=== PATIENT | male | born 1975 | race African-American/Black ===

== ENCOUNTER 2024-03-05 11:11 | Emergency (ER) | payer BC, SELFPAY ==
[2024-03-05 11:16] VITALS: BP 154/84; PULSE 94; RESP 18; TEMP 37.3; O2SAT 100
[2024-03-05 11:17] VITALS: BP 154/84; PULSE 87; RESP 21; O2SAT 96
[2024-03-05 11:31] VITALS: BP 136/84; PULSE 88; RESP 18; O2SAT 96
[2024-03-05] MEDS: SODIUM CHLORIDE 0.9% IV 1,000 ML 999 ML IV CONT (11:39)
[2024-03-05 11:45] LABS: Eosinophils Absolute Auto 0.1 K/mm3 (0-0.3); Eosinophils Percent Auto 1.6 % (0-4.4); Hematocrit 43.5 % (42.0-52.0); Hemoglobin 13.9 g/dL (14.0-18.0); Immature Granulocyte Absolute 0.01 K/mm3 (0.00-0.031); Immature Granulocyte Percent A 0.3 % (0-0.5); Lymphocytes Absolute Auto 1.24 K/mm3 (0.9-3.2); Lymphocytes Percent Auto 32.3 % (18.3-44.2); Mean Corpuscular Hemoglobin 27.5 pg (26-34); Mean Corpuscular Volume 86.1 fl (80-100); Monocytes Absolute Auto 0.7 K/mm3 (0.1-0.6); Monocytes Percent Auto 16.9 % (2.6-8.5); Neutrophils Absolute Auto 1.8 K/mm3 (1.3-6.7); Neutrophils Percent Auto 47.9 % (45.5-73.1); Platelet Count Result 265 k/mm3 (150-375); Red Blood Count 5.05 M/mm3 (4.6-6.20); Red Cell Distribution Width 13.4 % (11.5-14.5); White Blood Count 3.8 K/mm3 (4.5-10.0)
[2024-03-05 11:54] LABS: Alanine Aminotransferase 50 U/L (6-50); Albumin Level 4.8 g/dL (3.5-5.1); Alkaline Phosphatase 79 U/L (38-126); Anion Gap 11 mmol/L (4-12); Aspartate Amino Transferase 46 U/L (17-59); Blood Urea Nitrogen 20 mg/dL (9-20); Calcium 9.1 mg/dL (8.4-10.2); Carbon Dioxide 22 mmol/L (22-30); Chloride 103 mmol/L (98-107); Estimated CRCL calculation 102 ml/min; Estimated Glomerular Filt Rate > 60; Glucose 101 mg/dL (65-110); Lipase 71 U/L (23-300); Potassium 4.6 mmol/L (3.4-5.0); Sodium 136 mmol/L (137-145)
[2024-03-05 12:01] VITALS: BP 149/89; PULSE 83; RESP 23; O2SAT 94
--- NOTE | 2024-03-05 13:14 | ED.NAVMDI ---
HPI - Nausea/Vomiting/Diarrhea General Chief complaint: Nausea/Vomiting/Diarrhea Stated complaint: N/V Time Seen by Provider: 03/05/24 11:13 History of Present Illness HPI Narrative: Patient is a 48-year-old male who presents ER with nausea vomiting diarrhea. Ongoing over last 5 days. No vomiting or diarrhea today. He has increased fatigue. Poor appetite. Daughter with similar symptoms. No bloody stool. Related Data Allergies Allergy/AdvReac Type Severity Reaction Status Date / Time No Known Allergies Allergy Verified 03/05/24 11:19 Review of Systems Review of Systems: All systems reviewed & are unremarkable except as noted in HPI and below Constitutional: Constitutional: Denies chills, Reports fatigue and Denies fever(s) ENT: Reports system reviewed and no additional complaints, except as documented Cardiovascular: Cardiovascular: Reports no additional cardiovascular complaints Respiratory: Respiratory: Reports no additional respiratory complaints Gastrointestinal: Gastrointestinal: Denies abdominal pain, Reports diarrhea, Reports nausea and Denies vomiting PMFSH Past Medical History Medical History (Updated 03/05/24 @ 13:19 by Demetri Solis MD) Healthy adult male Surgical History Surgical History (Updated 03/05/24 @ 13:19 by Demetri Solis MD) No history of previous surgery Exam Narrative: GENERAL: Well-appearing, well-nourished, and in no acute distress. HEAD: Normocephalic, atraumatic. ENT: Mucous membranes moist. CHEST: Clear to auscultation. No respiratory distress. HEART: Regular rate and rhythm. Normal peripheral pulses. ABDOMEN: Soft, nontender, nondistended. EXTREMITIES: Normal range of motion. No edema. SKIN: Warm, dry, no rash. NEURO: Alert and oriented x3. PSYCH: Normal mood and affect. Course Course Emergency Course: patient reporting mild headache at this time. Will give Toradol. He does feel improved with fluids. Discharge home with antiemetics. Vital Signs Vital signs: Vital Signs Temperature 99.1 F 03/05/24 11:16 Pulse Rate 94 03/05/24 11:16 Respiratory Rate 18 03/05/24 11:16 Blood Pressure 154/84 H 03/05/24 11:16 Pulse Oximetry 100 03/05/24 11:16 Oxygen Delivery Room Air 03/05/24 11:16 Temperature 99.1 F 03/05/24 11:16 Pulse Rate 83 03/05/24 12:01 Respiratory Rate 23 H 03/05/24 12:01 Blood Pressure 149/89 H 03/05/24 12:01 Pulse Oximetry 94 03/05/24 12:01 Oxygen Delivery Room Air 03/05/24 11:16 MDM - Nausea/Vomiting/Diarrhea Lab Data Attestation: I reviewed the patient's lab results. 03/05/24 11:35 03/05/24 11:36 Labs: Lab Results 03/05/24 03/05/24 Range/Units 11:35 11:36 WBC 3.8 L (4.5-10.0) K/mm3 RBC 5.05 (4.6-6.20) M/mm3 Hgb 13.9 L (14.0-18.0) g/dL Hct 43.5 (42.0-52.0) % MCV 86.1 (80-100) fl MCH 27.5 (26-34) pg MCHC 32.0 (32-36) g/dl RDW 13.4 (11.5-14.5) % Plt Count 265 (150-375) k/mm3 MPV 10.0 (7.4-10.4) fl Immature Gran % (Auto) 0.3 (0-0.5) % Neut % (Auto) 47.9 (45.5-73.1) % Lymph % (Auto) 32.3 (18.3-44.2) % [place] % (Auto) 16.9 H (2.6-8.5) % Eos % (Auto) 1.6 (0-4.4) % Baso % (Auto) 1.0 (0.2-1.2) % Lymph # (Auto) 1.24 (0.9-3.2) K/mm3 [place] # (Auto) 0.7 H (0.1-0.6) K/mm3 Eos # (Auto) 0.1 (0-0.3) K/mm3 Baso # (Auto) 0.0 (0.0-0.1) K/mm3 Abs Immat Gran (auto) 0.01 (0.00-0.031) K/mm3 Absolute Neuts (auto) 1.8 (1.3-6.7) K/mm3 Absolute Nucleated RBC 0.000 (0.0-0.012) K/mm3 Nucleated RBC % 0.0 (0.0-0.2) % Sodium 136 L (137-145) mmol/L Potassium 4.6 (3.4-5.0) mmol/L Chloride 103 (98-107) mmol/L Carbon Dioxide 22 (22-30) mmol/L Anion Gap 11 (4-12) mmol/L BUN 20 (9-20) mg/dL Creatinine 0.80 (0.7-1.3) mg/dL Estim Creat Clear Calc 102 ml/min Estimated GFR > 60 (59 - ) Glucose 101 (65-110) mg/dL Calcium 9.1 (8.4-10.2) mg/dL To
[2024-03-05 13:27] VITALS: BP 147/98; PULSE 83; RESP 16; O2SAT 95
[2024-03-05] MEDS: KETOROLAC 30 MG/ML VIAL (*BKC) IV PUSH (13:27)
== END 2024-03-05 13:29 | disposition home or self-care (01) ==
PROVIDERS: Emergency Provider Emergency Medicine
DX: K52.9 Noninfective gastroenteritis and colitis, unspecified (principal)
CPT/HCPCS: 36415; 80053; 83690; 85025; 96361; 96374; 99284; J1885; J7030

== ENCOUNTER 2025-01-04 19:08 | Emergency (ER) | payer BC, SELFPAY ==
[2025-01-04] VITALS (8 sets, daily range): BP systolic 134–161; BP diastolic 88–96; PULSE 52–95; RESP 16–20; TEMP 36.7; O2SAT 95–99
--- NOTE | ~2025-01-04 | XR_ITS ---
CHEST RADIOGRAPH, PA AND LATERAL CLINICAL HISTORY: cough, self reports wheezes; coarse breath sounds . COMPARISON: None available TECHNIQUE: PA and lateral views of the chest. FINDINGS The cardiomediastinal silhouette is unremarkable. The lungs are clear. Visualized osseous structures and soft tissues are unremarkable. IMPRESSION: No focal infiltrate or effusion. Reviewed, dictated and finalized at location A.
--- NOTE | 2025-01-04 19:10 | ECG_ITS ---
Test Date: 2025-01-04 19:12:36 Measurements Intervals [place] Rate: 64 P: 56 OK: 209 QRS: 34 QRSD: 101 T: 52 QT: 359 QTc: 372 Interpretive Statements SINUS RHYTHM WITH FIRST DEGREE AV BLOCK BORDERLINE ECG No previous ECG available for comparison Electronically Signed On 01-04-2025 20:29:08 CDT by Fuentes Alba D.O.
--- OUTSIDE RECORDS SUMMARY | 2025-01-04 19:10 | XMS_ITS | Clinical Summary ---
Author Organization [facility] Address [address] [place] [address] Care Team Providers Care Elevator Installer Name Role Phone [facility], Jon Montoyaran Primary Care Pro vider Allergies No known active allergies Medications No known medications Active Problems No known active problems Surgical History Surgery Date Site/Laterality Comments SHOULDER SURGERY Medical History Medical History Date Comments Back pain Social History Tobacco Use Types Packs/Day Years Used Date Smoking Tobacco: Former Smokeless Tobacco: Former Personal Safety Answer Date Recorded Getting School Help Needed Not on file 12/13 Sex and Gender Information Value Date Recorded Sex Assigned at Not on file 

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
--- OUTSIDE RECORDS SUMMARY | 2025-01-04 19:10 | XMS_ITS | Referral Summary ---
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
--- OUTSIDE RECORDS SUMMARY | 2025-01-04 19:10 | XMS_ITS | Continuity of Care Document ---
Author Name [facility] Organization [facility] Care Team Providers Care Tool And Die Maker Name Role Phone [facility] Unavailable Unavailable Problems Combined list of problems from Department of Defense and Veterans Affairs facilities. It does not include entries that were removed or entered in error. Problem Status Onset Date Problem Type Date of Resolution Comments Source Allergic rhinitis Active Condition [facility] Chronic depression Active Condition [facility] Chronic folliculitis (SNOMED CT 050701923) Active Condition [facility] Chronic low back pain Active Condition [facility] Chronic pain Active Condition [facility] Degeneration of lumbar intervertebral disc Active Condition [facility] Erectile dysfunction (SNOMED CT 103767837) Active Condition [facility] Hyperlipidemia Active Condition 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 Depressive Disorder NOS * (ICD-9-CM 311./300.4) Inactive Condition 01/23/2024 [facility] Elevated blood-pressure reading without diagnosis of hypertension Inactive Condition 01/23/2024 [facility] Sprains and strains of knee and leg (ICD-9-CM 844.9) Inactive Condition 11/28/2022 [facility] Stye Inactive Condition 03/03/2019 [facility] Diagnosis: ICD-10-CM F43.12 Post-traumatic stress disorder, chronic Active Diagnosis [facility] Diagnosis: ICD-10-CM F43.20 Adjustment disorder, unspecified Active Diagnosis [facility] Diagnosis: ICD-10-CM M54.50 Low back pain, unspecified Active Diagnosis [facility] Diagnosis: ICD-10-CM G89.29 Other chronic pain Active Diagnosis [facility] Diagnosis: ICD-10-CM F43.23 Adjustment disorder with mixed anxiety and depressed mood Active Diagnosis [facility] Diagnosis: ICD-10-CM F43.22 Adjustment disorder with anxiety Active Diagnosis [facility] Diagnosis: ICD-10-CM R73.03 Prediabetes Active Diagnosis [facility] Medications Combined list of outpatient medications from Department of Defense and [facility] Affairs facilities.Medications provided include 1) outpatient medications from the last 15 months, and 2) patient-reported medications. Medication Details Route Status Patient Instructions Prescription Expires Prescription Number Last Dispense Date Ordering Provider Order Date Order Qty Source BENZOYL PEROXIDE 10% WASH WASH SMALL AMOUNT TO AFFECTED AREA(S) ONCE A DAY FOR ACNE TOPICA L ACTIVE 01/23/2025 [id number] 5 DENVER PALUMBO 2023 450 [facility] BENZOYL PEROXIDE 10% WASH WASH SMALL AMOUNT TO AFFECTED AREA(S) ONCE A DAY FOR ACNE TOPICA L DISCONT INUED 02/14/2024 [id number] SHANNON KINGSTON SA 2022 450 [facility] CAMPHOR/MEN THOL/METHYL SALICYLATE LARGE PATCH APPLY 1 PATCH TO SKIN SITE ONCE A DAY (EXTERNA L USE ONLY) TRANSD ERMAL ACTIVE 10/03/2025 [id number] 5 DENVER PALUMBO 2024 90 [facility] CAPSAICIN 0.025% CREAM,TOP APPLY LIGHTLY TO AFFECTED AREA(S) FOUR TIMES A DAY FOR PAIN. EXTERNAL USE ONLY. WASH HANDS AFTER APPLICAT ION. TOPICA L 02/14/2024 [id number] 4 SHANNON KINGSTON SA 2022 60 [facility] CETIRIZINE HCL 10MG TAB TAKE ONE TABLET BY MOUTH ONCE A DAY FOR ALLERGY SYMPTOMS . ORAL ACTIVE 12/24/2025 [id number] 5 DENVER PALUMBO 2024 90 [facility] CETIRIZINE HCL 10MG TAB TAKE ONE TABLET BY MOUTH ONCE A DAY FOR ALLERGY SYMPTOMS . ORAL DISCONT INUED 01/23/2025 [id number] 5 DENVER PALUMBO 2023 90 [facility] CETIRIZINE HCL 10MG TAB TAKE ONE TABLET BY MOUTH ONCE A DAY FOR ALLERGY SYMPTOMS . ORAL DISCONT INUED 02/14/2024 [id number] 4 SHANNON KINGSTON SA 2022 90 [facility] CHOLECALCIF TERRY 25MCG (1,000UNIT) TAB TAKE THREE TABLETS BY MOUTH ONCE A DAY FOR VITAMIN D DEFICIEN CY ORAL ACTIVE 01/23/2025 [id number] 5 DENVER PALUMBO 2023 300 [facility] CYCLOBENZAP RINE HCL 10MG TAB TAKE ONE TABLET BY MOUTH AT BEDTIME NEEDED MAY CAUSE DROWSINE SS. DO NOT DRINK ALCOHOL WHILE TAKING THIS MEDICATI ON. ORAL ACTIVE 10/03/2025 [id number] 5 DENVER PALUMBO 2024 90 [facility] DICLOFENAC NA 1% GEL,TOP APPLY 2 GM TO AFFECTED AREA(S) FOUR TIMES A DAY NO MORE THAN 16 GM/DAY TO ANY LOWER EXTREMIT Y JOINT. NO MORE THAN 8 GM/DAY TO ANY UPPER EXTREMIT Y JOINT. MAX 32GM/DAY OVER ALL JOINTS.( MEASURE DOSE WITH RULER INSIDE BOX) TOPICA L ACTIVE 10/03/2025 [id number] 5 DENVER PALUMBO 2024 200 [facility] IBUPROFEN 800MG TAB TAKE ONE TABLET BY MOUTH THREE TIMES A DAY NEEDED FOR PAIN OR INFLAMMA TION. TAKE WITH FOOD. ORAL ACTIVE 01/23/2025 [id number] 4 DENVER PALUMBO 2023 90 [facility] SILDENAFIL CITRATE 100MG TAB TAKE ONE TABLET BY MOUTH EVERY WEEK NEEDED FOR ERECTILE DYSFUNCT ION (TAKE 60 MINUTES PRIOR TO SEXUAL ACTIVITY ) - LIMIT 6 DOSES PER 30 DAYS ORAL ACTIVE 10/03/2025 [id number] 5 DENVER PALUMBO 2024 18 [facility] SILDENAFIL CITRATE 100MG TAB TAKE ONE TABLET BY MOUTH EVERY WEEK NEEDED FOR ERECTILE DYSFUNCT ION (TAKE 60 MINUTES PRIOR TO SEXUAL ACTIVITY ) - LIMIT 6 DOSES PER 30 DAYS ORAL DISCONT INUED (EDIT) 08/21/2025 [id number] 4 DENVER PALUMBO 2023 6 [facility] SILDENAFIL CITRATE 100MG TAB TAKE ONE TABLET BY MOUTH EVERY WEEK NEEDED FOR ERECTILE DYSFUNCT ION (TAKE 60 MINUTES PRIOR TO SEXUAL ACTIVITY ) - LIMIT 6 DOSES PER 30 DAYS ORAL DISCONT INUED 01/23/2025 [id number] 4 DENVER PALUMBO 2023 6 [facility] SILDENAFIL CITRATE 100MG TAB TAKE ONE TABLET BY MOUTH EVERY WEEK NEEDED FOR ERECTILE DYSFUNCT ION (TAKE 60 MINUTES PRIOR TO SEXUAL ACTIVITY ) - LIMIT 6 DOSES PER 30 DAYS ORAL DISCONT INUED 07/06/2024 [id number] 4 DENVER PALUMBO 2022 6 [facility] Allergies, Adverse Reactions, Alerts Combined list of allergies from Department of Defense and Veterans Affairs facilities. It does not include entries that were removed or entered in error. Substance Category Reaction Severity Reaction type Status Date Reported Comments Source NIASPAN Propensity to adverse reactions to drug (finding) [place] active 04/05/2009 [facility] Immunizations Combined list of available immunizations from the Department of Defense and Veterans Affairs facilities. Immunization Series Date Given Administered By Site Reaction Lot Number CVX Code Drug Vp Treasurer Status Comments Source TDAP 2023 RESHMA JARQUIN RIGHT DELTO ID [id number] 115 complet ed [facility] TDAP 2007 [facility] INFLUENZA, UNSPECIFIED FORMULATION 2006 88 complet ed [facility] INFLUENZA, UNSPECIFIED FORMULATION 2005 88 complet ed [facility] TDAP 2005 115 complet ed Right Deltoid [facility] Results Combined list of recent chemistry, hematology and other laboratory results from Department of Defense and Veterans Affairs, ranging from 15 months to all on record, depending upon the facility. Order Name Results Value Reference Range Date Interpretation Specimen Comments Source HGA1C HEMOGLOBIN A1C/HEMOGLO BIN.TOTAL IN BLOOD 6.2 4.0 - 6.0 01/22 H Specimen Type: BLOOD No comment entered. Ordering Provider: ROSCOE PALUMBO Report Released Date/Time: Jan 23, 2024 10:41 AM Reporting Lab: [facility] [address] [facility] [address] Performing Lab: [facility] [address] [place] [phone] [place] [address] [facility] LIPID PANEL (STL) CHOLESTEROL [MASS/VOLUM E] IN SERUM OR PLASMA 197 mg/dL 0 - 200 01/22 Specimen Type: PLASMA Comment: No hemolysis noted. Ordering Provider: ROSCOE PALUMBO Report Released Date/Time: Jan 23, 2024 10:41 AM Reporting Lab: [facility] [address] [facility] [address] Performing Lab: [facility] [address] [place] [phone] [facility] LIPID PANEL (STL) TRIGLYCERID E [MASS/VOLUM E] IN SERUM OR PLASMA 179 mg/dL 0 - 150 01/22 H Specimen Type: PLASMA Comment: No hemolysis noted. Ordering Provider: ROSCOE PALUMBO Report Released Date/Time: Jan 23, 2024 10:41 AM Reporting Lab: [facility] [address] [place] [phone] Performing Lab: [address] [phone] [place] [address] [facility] LIPID PANEL (STL) CHOLESTEROL IN LDL [MASS/VOLUM E] IN SERUM OR PLASMA BY CALCULATION 120 mg/dL 01/22 Specimen Type: PLASMA Comment: No hemolysis noted. Ordering Provider: ROSCOE PALUMBO Report Released Date/Time: Jan 23, 2024 10:41 AM Reporting Lab: [address] [address] Performing Lab: [address] [phone] [facility] LIPID PANEL (STL) CHOLESTEROL IN HDL [MASS/VOLUM E] IN SERUM OR PLASMA 41 mg/dL 40 01/22 Specimen Type: PLASMA Comment: No hemolysis noted. Ordering Provider: ROSCOE PALUMBO Report Released Date/Time: Jan 23, 2024 10:41 AM Reporting Lab: [address] [address] Performing Lab: [address] [phone] [facility] VITAMIN D, 25-HYDROXY 25-HYDROXYV ITAMIN D3 [MASS/VOLUM E] IN SERUM OR PLASMA 25.4 ng/mL 30 - 96 01/22 L Specimen Type: SERUM Comment: The listed sex of this patient may not be a typical indication for this test. Therefore, reference ranges or interpretive criteria listed may not be valid. Clinical correlation suggested. Ordering Provider: ROSCOE PALUMBO Report Released Date/Time: Jan 23, 2024 10:42 AM Reporting Lab: [address] [address] Performing Lab: [address] [phone] [place] [address] [facility] TSH W/ REFLEX FT4 (STL) THYROTROPIN [UNITS/VOLU ME] IN SERUM OR PLASMA 0.599 u[IU]/ mL 0.47 - 5 01/22 Specimen Type: PLASMA No comment entered. Ordering Provider: ROSCOE PALUMBO Report Released Date/Time: Jan 23, 2024 10:42 AM Reporting Lab: [place] [address] Performing Lab: [phone] [place] [address] [facility] PROST. SPECIFIC AG.(PB-STL ) PROSTATE SPECIFIC AG [MASS/VOLUM E] IN SERUM OR PLASMA 3.918 ng/mL 0 - 4 01/22 Specimen Type: SERUM Comment: The listed sex of this patient may not be a typical indication for this test. Therefore, reference ranges or interpretive criteria listed may not be valid. Clinical correlation suggested. Ordering Provider: ROSCOE PALUMBO Report Released Date/Time: Jan 23, 2024 10:42 AM Reporting Lab: [place] [address] Performing Lab: [address] [facility] COMPREHENS DE METABOLIC PANEL CREATININE [MASS/VOLUM E] IN SERUM OR PLASMA 0.91 mg/dL 0.7 - 1.3 01/22 Specimen Type: PLASMA Comment: No hemolysis noted. Ordering Provider: ROSCOE PALUMBO Report Released Date/Time: Jan 23, 2024 10:41 AM Reporting Lab: [place] [address] Performing Lab: [address] [facility] COMPREHENS DE METABOLIC PANEL UREA NITROGEN [MASS/VOLUM E] IN SERUM OR PLASMA 13.9 mg/dL 9.0 - 25.0 01/22 Specimen Type: PLASMA Comment: No hemolysis noted. Ordering Provider: ROSCOE PALUMBO Report Released Date/Time: Jan 23, 2024 10:41 AM Reporting Lab: [place] [address] Performing Lab: [address] [place] [address] [facility] COMPREHENS DE METABOLIC PANEL GLUCOSE [MASS/VOLUM E] IN SERUM OR PLASMA 77 mg/dL 72 - 99 01/22 Specimen Type: PLASMA Comment: No hemolysis noted. Ordering Provider: ROSCOE PALUMBO Report Released Date/Time: Jan 23, 2024 10:41 AM Reporting Lab: [address] [address] Performing Lab: [address] [address] [facility] COMPREHENS DE METABOLIC PANEL SODIUM [MOLES/VOLU ME] IN SERUM OR PLASMA 139 meq/L 136 - 145 01/22 Specimen Type: PLASMA Comment: No hemolysis noted. Ordering Provider: ROSCOE PALUMBO Report Released Date/Time: Jan 23, 2024 10:41 AM Reporting Lab: [address] [address] Performing Lab: [address] [address] [facility] COMPREHENS DE METABOLIC PANEL POTASSIUM [MOLES/VOLU ME] IN SERUM OR PLASMA 4.1 meq/L 3.5 - 5 01/22 Specimen Type: PLASMA Comment: No hemolysis noted. Ordering Provider: ROSCOE PALUMBO Report Released Date/Time: Jan 23, 2024 10:41 AM Reporting Lab: [address] [address] Performing Lab: [address] [address] [facility] COMPREHENS DE METABOLIC PANEL CHLORIDE [MOLES/VOLU ME] IN SERUM OR PLASMA 105 meq/L 98 - 107 01/22 Specimen Type: PLASMA Comment: No hemolysis noted. Ordering Provider: ROSCOE PALUMBO Report Released Date/Time: Jan 23, 2024 10:41 AM Reporting Lab: [address] [address] Performing Lab: [place] [address] [facility] [address] [facility] COMPREHENS DE METABOLIC PANEL CARBON DIOXIDE, TOTAL [MOLES/VOLU ME] IN SERUM OR PLASMA 26 meq/L 22 - 31 01/22 Specimen Type: PLASMA Comment: No hemolysis noted. Ordering Provider: ROSCOE PALUMBO Report Released Date/Time: Jan 23, 2024 10:41 AM Reporting Lab: [address] [address] Performing Lab: [address] [address] [facility] COMPREHENS DE METABOLIC PANEL CALCIUM [MASS/VOLUM E] IN SERUM OR PLASMA 9.7 mg/dL 8.4 - 10.4 01/22 Specimen Type: PLASMA Comment: No hemolysis noted. Ordering Provider: ROSCOE PALUMBO Report Released Date/Time: Jan 23, 2024 10:41 AM Reporting Lab: [address] [address] Performing Lab: [address] [address] [facility] COMPREHENS DE METABOLIC PANEL PROTEIN [MASS/VOLUM E] IN SERUM OR PLASMA 7.8 g/dL 6 - 8.6 01/22 Specimen Type: PLASMA Comment: No hemolysis noted. Ordering Provider: ROSCOE PALUMBO Report Released Date/Time: Jan 23, 2024 10:41 AM Reporting Lab: [place] [address] [facility] [address] Performing Lab: [address] [address] [facility] COMPREHENS DE METABOLIC PANEL ALBUMIN [MASS/VOLUM E] IN SERUM OR PLASMA 4.5 g/dL 3.4 - 5 01/22 Specimen Type: PLASMA Comment: No hemolysis noted. Ordering Provider: ROSCOE PALUMBO Report Released Date/Time: Jan 23, 2024 10:41 AM Reporting Lab: [address] [address] Performing Lab: [facility] [address] [facility] [address] [facility] COMPREHENS DE METABOLIC PANEL BILIRUBIN.T OTAL [MASS/VOLUM E] IN SERUM OR PLASMA 0.7 mg/dL 0.2 - 1.2 01/22 Specimen Type: PLASMA Comment: No hemolysis noted. Ordering Provider: ROSCOE PALUMBO Report Released Date/Time: Jan 23, 2024 10:41 AM Reporting Lab: [place] [address] [facility] [address] Performing Lab: [address] [phone] [place] [address] [facility] COMPREHENS DE METABOLIC PANEL ALKALINE PHOSPHATASE [ENZYMATIC ACTIVITY/VO LUME] IN SERUM OR PLASMA 75 U/L 40 - 150 01/22 Specimen Type: PLASMA Comment: No hemolysis noted. Ordering Provider: ROSCOE PALUMBO Report Released Date/Time: Jan 23, 2024 10:41 AM Reporting Lab: [place] [address] [facility] [address] Performing Lab: [place] [address] [facility] [address] [facility] COMPREHENS DE METABOLIC PANEL ASPARTATE AMINOTRANSF ERASE [ENZYMATIC ACTIVITY/VO LUME] IN SERUM OR PLASMA 28 U/L 5 - 34 01/22 Specimen Type: PLASMA Comment: No hemolysis noted. Ordering Provider: ROSCOE PALUMBO Report Released Date/Time: Jan 23, 2024 10:41 AM Reporting Lab: [place] [address] [facility] [address] Performing Lab: [address] [address] [facility] COMPREHENS DE METABOLIC PANEL ALANINE AMINOTRANSF ERASE [ENZYMATIC ACTIVITY/VO LUME] IN SERUM OR PLASMA 34 U/L 8 - 40 01/22 Specimen Type: PLASMA Comment: No hemolysis noted. Ordering Provider: ROSCOE PALUMBO Report Released Date/Time: Jan 23, 2024 10:41 AM Reporting Lab: [address] [address] Performing Lab: [address] [phone] [facility] COMPREHENS DE METABOLIC PANEL GLOMERULAR FILTRATION RATE/1.73 SQ M.PREDICTED [VOLUME RATE/AREA] IN SERUM, PLASMA OR BLOOD BY CREATININE- BASED FORMULA (CKD-EPI 2020) 102.7 60 01/22 Specimen Type: PLASMA Comment: No hemolysis noted. Ordering Provider: ROSCOE PALUMBO Report Released Date/Time: Jan 23, 2024 10:41 AM Reporting Lab: [address] [address] Performing Lab: [address] [phone] [place] [address] [facility] CBC LEUKOCYTES [#/VOLUME] IN BLOOD BY AUTOMATED COUNT 4.1 10*3/u L 3.6 - 11.2 01/22 Specimen Type: BLOOD No comment entered. Ordering Provider: ROSCOE PALUMBO Report Released Date/Time: Jan 23, 2024 10:41 AM Reporting Lab: [address] [address] Performing Lab: [address] [address] [facility] CBC ERYTHROCYTE S [#/VOLUME] IN BLOOD BY AUTOMATED COUNT 4.89 10*6/u L 4.10 - 5.70 01/22 Specimen Type: BLOOD No comment entered. Ordering Provider: ROSCOE PALUMBO Report Released Date/Time: Jan 23, 2024 10:41 AM Reporting Lab: [address] [address] Performing Lab: [address] [address] [facility] CBC HEMOGLOBIN [MASS/VOLUM E] IN BLOOD 13.4 g/dL 13.1 - 16.8 01/22 Specimen Type: BLOOD No comment entered. Ordering Provider: ROSCOE PALUMBO Report Released Date/Time: Jan 23, 2024 10:41 AM Reporting Lab: [place] [address] Performing Lab: [address] [facility] CBC HEMATOCRIT [VOLUME FRACTION] OF BLOOD 42.0 38.2 - 48.4 01/22 Specimen Type: BLOOD No comment entered. Ordering Provider: ROSCOE PALUMBO Report Released Date/Time: Jan 23, 2024 10:41 AM Reporting Lab: [place] [address] Performing Lab: [address] [facility] CBC MCV [ENTITIC VOLUME] BY AUTOMATED COUNT 85.9 fL 80.0 - 100.0 01/22 Specimen Type: BLOOD No comment entered. Ordering Provider: ROSCOE PALUMBO Report Released Date/Time: Jan 23, 2024 10:41 AM Reporting Lab: [place] [address] Performing Lab: [address] [facility] CBC MCH [ENTITIC MASS] BY AUTOMATED COUNT 27.4 pg 27.0 - 34.0 01/22 Specimen Type: BLOOD No comment entered. Ordering Provider: ROSCOE PALUMBO Report Released Date/Time: Jan 23, 2024 10:41 AM Reporting Lab: [place] [address] Performing Lab: [address] [facility] CBC MCHC [MASS/VOLUM E] BY AUTOMATED COUNT 31.9 g/dL 33.0 - 36.0 01/22 L Specimen Type: BLOOD No comment entered. Ordering Provider: ROSCOE PALUMBO Report Released Date/Time: Jan 23, 2024 10:41 AM Reporting Lab: [facility] [address] [facility] [address] Performing Lab: [address] [address] [facility] CBC PLATELETS [#/VOLUME] IN BLOOD BY AUTOMATED COUNT 324 10*3/u L 150 - 400 01/22 Specimen Type: BLOOD No comment entered. Ordering Provider: ROSCOE PALUMBO Report Released Date/Time: Jan 23, 2024 10:41 AM Reporting Lab: [place] [address] [facility] [address] Performing Lab: [place] [address] [facility] [address] [facility] CBC PLATELET MEAN VOLUME [ENTITIC VOLUME] IN BLOOD BY AUTOMATED COUNT 10.7 fL 7.5 - 11.2 01/22 Specimen Type: BLOOD No comment entered. Ordering Provider: ROSCOE PALUMBO Report Released Date/Time: Jan 23, 2024 10:41 AM Reporting Lab: [place] [address] [facility] [address] Performing Lab: [address] [address] [facility] CBC ERYTHROCYTE DISTRIBUTIO N WIDTH [RATIO] BY AUTOMATED COUNT 13.1 11.8 - 15.1 01/22 Specimen Type: BLOOD No comment entered. Ordering Provider: ROSCOE PALUMBO Report Released Date/Time: Jan 23, 2024 10:41 AM Reporting Lab: [place] [address] [facility] [address] Performing Lab: [place] [address] [facility] [address] [facility] CBC LYMPHOCYTES /100 LEUKOCYTES IN BLOOD BY AUTOMATED COUNT 56 01/22 Specimen Type: BLOOD No comment entered. Ordering Provider: ROSCOE PALUMBO Report Released Date/Time: Jan 23, 2024 10:41 AM Reporting Lab: [place] [address] [facility] [address] Performing Lab: [facility] [address] [facility] [address] [facility] CBC MONOCYTES/1 00 LEUKOCYTES IN BLOOD BY AUTOMATED COUNT 7 01/22 Specimen Type: BLOOD No comment entered. Ordering Provider: ROSCOE PALUMBO Report Released Date/Time: Jan 23, 2024 10:41 AM Reporting Lab: [address] [address] Performing Lab: [address] [address] [facility] CBC NEUTROPHILS /100 LEUKOCYTES IN BLOOD BY AUTOMATED COUNT 32 01/22 Specimen Type: BLOOD No comment entered. Ordering Provider: ROSCOE PALUMBO Report Released Date/Time: Jan 23, 2024 10:41 AM Reporting Lab: [address] [address] Performing Lab: [address] [address] [facility] CBC EOSINOPHILS /100 LEUKOCYTES IN BLOOD BY AUTOMATED COUNT 5 01/22 Specimen Type: BLOOD No comment entered. Ordering Provider: ROSCOE PALUMBO Report Released Date/Time: Jan 23, 2024 10:41 AM Reporting Lab: [address] [address] Performing Lab: [address] [address] [facility] CBC BASOPHILS/1 00 LEUKOCYTES IN BLOOD BY AUTOMATED COUNT 1 01/22 Specimen Type: BLOOD No comment entered. Ordering Provider: ROSCOE PALUMBO Report Released Date/Time: Jan 23, 2024 10:41 AM Reporting Lab: [address] [address] Performing Lab: [address] [address] [facility] CBC LYMPHOCYTES [#/VOLUME] IN BLOOD BY AUTOMATED COUNT 2.30 10*3/u L 0.77 - 4.50 01/22 Specimen Type: BLOOD No comment entered. Ordering Provider: ROSCOE PALUMBO Report Released Date/Time: Jan 23, 2024 10:41 AM Reporting Lab: [facility] [address] [place], [place] [id number] Performing Lab: [address] [phone] [place] [address] [facility] CBC MONOCYTES [#/VOLUME] IN BLOOD BY AUTOMATED COUNT 0.27 10*3/u L 0.19 - 0.80 01/22 Specimen Type: BLOOD No comment entered. Ordering Provider: ROSCOE PALUMBO Report Released Date/Time: Jan 23, 2024 10:41 AM Reporting Lab: [place] [id number] Performing Lab: [address] [phone] [address] [facility] CBC NEUTROPHILS [#/VOLUME] IN BLOOD BY AUTOMATED COUNT 1.32 10*3/u L 2.10 - 8.00 01/22 L Specimen Type: BLOOD No comment entered. Ordering Provider: ROSCOE PALUMBO Report Released Date/Time: Jan 23, 2024 10:41 AM Reporting Lab: [facility] [address] [place] [phone] Performing Lab: [address] [phone] [address] [facility] CBC EOSINOPHILS [#/VOLUME] IN BLOOD BY AUTOMATED COUNT 0.19 10*3/u L 0.00 - 0.60 01/22 Specimen Type: BLOOD No comment entered. Ordering Provider: ROSCOE PALUMBO Report Released Date/Time: Jan 23, 2024 10:41 AM Reporting Lab: [facility] [address] [place], [place] [id number] Performing Lab: [address] [address] [facility] CBC BASOPHILS [#/VOLUME] IN BLOOD BY AUTOMATED COUNT 0.05 10*3/u L 0.00 - 0.20 01/22 Specimen Type: BLOOD No comment entered. Ordering Provider: ROSCOE PALUMBO Report Released Date/Time: Jan 23, 2024 10:41 AM Reporting Lab: [facility] [address] [place] [address] Performing Lab: [facility] [address] [facility] [address] [facility] Vital Signs Combined list of inpatient and outpatient Vital Signs from Department of Defense and Veterans Affairs, ranging from 12 months to all on record, depending upon the facility. Vital Sign Value Date Comments Source SYSTOLIC BLOOD PRESSURE 143 10/02/2024 10:04:31 [facility] DIASTOLIC BLOOD PRESSURE 83 10/02/2024 10:04:31 [facility] PULSE OXIMETRY 97 10/02/2024 10:04:31 [facility] WEIGHT 225 10/02/2024 10:04:31 [facility] BMI 31 kg/m2 10/02/2024 10:04:31 [facility] PAIN 8 10/02/2024 10:04:31 [facility] TEMPERATURE 97.9 10/02/2024 10:04:31 [facility] PULSE 64 10/02/2024 10:04:31 . [facility] RESPIRATION 18 10/02/2024 10:04:31 [facility] SYSTOLIC BLOOD PRESSURE 137 01/23/2024 10:31:56 [facility] DIASTOLIC BLOOD PRESSURE 75 01/23/2024 10:31:56 [facility] PULSE OXIMETRY 97 01/23/2024 10:31:56 S [facility] WEIGHT 222.6 01/23/2024 10:31:56 [facility] BMI 31 kg/m2 01/23/2024 10:31:56 [facility] PAIN 7 01/23/2024 10:31:56 [facility] TEMPERATURE 98.7 01/23/2024 10:31:56 [facility] PULSE 64 01/23/2024 10:31:56 . [facility] RESPIRATION 20 01/23/2024 10:31:56 [facility] Encounters Combined list of: 1) Encounters from Department of Veterans Affairs facilities going backup to the last 18 months, not all VA inpatient encounters are included; 2) Encounters from the Department of Defense facilities going backup to 280 months. Location Location Details Encounter Type Encounter Number Reason For Visit Attending Provider ADM Date DC Date Status Disposition Source [facility] Outpatient Encounter [id number] DIANA JARQUIN 07/06 [facility] Outpatient Encounter [id number] 01/22 [facility] OFFICE O/P EST MOD 30 MIN [id number] Diagnos is: ICD-10- CM R73.03 Prediab etes DEEPALI,Karime ODD 01/22 [facility] PSYTX W PT 30 MINUTES [id number] Diagnos is: ICD-10- CM F43.22 Adjustm ent disorde r with anxiety Janneth FINLEY 01/22 [facility] Outpatient Encounter [id number] DEEPALI,Karime ODD 01/23 [facility] PSYTX W PT 30 MINUTES [id number] Diagnos is: ICD-10- CM F43.20 Adjustm ent disorde r, unspeci fied Janneth FINLEY 02/04 [facility] Outpatient Encounter [id number] Janneth FINLEY 03/04 [facility] N [facility] Outpatient Encounter [id number] 04/08 [facility] Outpatient Encounter [id number] 04/08 [facility] Outpatient Encounter [id number] 04[facility]22 [facility] En[facility] [id number] 04/22 [facility] PSYTX W PT 30 MINUTES [id number] Diagnos is: ICD-10- CM F43.20 Adjustm ent disorde r, unspeci fied Janneth FINLEY 05/13 [facility] PSYTX W PT 30 MINUTES [id number] Diagnos is: ICD-10- CM F43.22 Adjustm ent disorde r with anxiety Janneth FINLEY 06/10 [facility] PSYTX W PT 30 MINUTES [id number] Diagnos is: ICD-10- CM F43.22 Adjustm ent disorde r with anxiety Janneth FINLEY 06/24 [facility] PSYTX W PT 30 MINUTES [id number] Diagnos is: ICD-10- CM F43.22 Adjustm ent disorde r with anxiety Janneth FINLEY 07/08 [facility] ASSMT/REAS SESSMENT [id number] Diagnos is: ICD-10- CM F43.20 Adjustm ent disorde r, unspeci fiangela MENDEZ ISWALT,TH ERESA 07/15 [facility] PSYTX W PT 30 MINUTES [id number] Diagnos is: ICD-10- CM F43.23 Adjustm ent disorde r with mixed anxiety and depress ed mood Janneth FINLEY 07/22 [facility] Outpatient Encounter [id number] Chiara PARKS 07/22 [facility] Outpatient Encounter [id number] 07/29 [facility] OFFICE O/P EST LOW 20 MIN [id number] Diagnos is: ICD-10- CM M54.50 Low back pain, unspeci fied DEEPALI,Karime ODD 10/02 [facility] Outpatient Encounter [id number] DEEPALI,T ODD 10/21 [facility] Outpatient Encounter [id number] Chiara PARKS 10/28 [facility] PSYCHOTHER APY [id number] Diagnos is: ICD-10- CM F43.12 Post-tr aumatic stress disorde r, chronic Janneth FINLEY 10/30 [facility] IVNTJ GRP EA ADDL [id number] Diagnos is: ICD-10- CM G89.29 Other chronic pain Chiara PARKS 11/04 [facility] [id number] Diagnos is: ICD-10- CM M54.50 Low back pain, unspeci fied TEMITOPE RAMOS 11/04 [facility] GROUP PSYCHOTHER APY [id number] Diagnos is: ICD-10- CM F43.12 Post-tr aumatic stress disorde r, Janneth Kiran ARVA 11/06 [facility] IVNTJ GRP EA ADDL [id number] Diagnos is: ICD-10- CM G89.29 Other chronic pain Chiara PARKS RITTANY J 11/11 [facility] GROUP PSYCHOTHER APY [id number] Diagnos is: ICD-10- CM F43.12 Post-tr aumatic stress disorde r, Janneth Kiran ARVA 11/13 [facility] IVNTJ GRP EA ADDL [id number] Diagnos is: ICD-10- CM G89.29 Other chronic pain PARKSChiara RITTANY J 11/18 [facility] GROUP PSYCHOTHER APY [id number] Diagnos is: ICD-10- CM F43.12 Post-tr aumatic stress disorde r, chronic Janneth FINLEY ARVA 11/20 [facility] IVNTJ GRP EA ADDL [id number] Diagnos is: ICD-10- CM G89.29 Other chronic pain PARKSChiara RITTANY J 12/02 [facility] GROUP PSYCHOTHER APY [id number] Diagnos is: ICD-10- CM F43.12 Post-tr aumatic stress disorde r, chronic Janneth FINLEY ARVA 12/04 [facility] THER[facility]I [facility] EXERCISES [id number] Diagnos is: ICD-10- CM M54.50 Low back pain, unspeci fiTEMITOPE Richard 12/08 [facility] Outpatient Encounter [id number] Chiara PARKS 12/09 [facility] N [facility] Outpatient Encounter [id number] BRANDYN RACQUEL M 12/10 [facility] N [facility] GROUP PSYCHOTHER APY [id number] Diagnos is: ICD-10- CM F43.20 Adjustm ent disorde r, unspeci fied Janneth FINLEY 12/11 [facility] Outpatient Encounter [id number] 12/31 [facility] GROUP PSYCHOTHER APY [id number] Diagnos is: ICD-10- CM F43.12 Post-tr aumatic stress disorde r, chronic Janneth FINLEY ARVA 01/01 [facility] Social History Combined list of available smoking, tobacco, and other social history from Department of Defense and [facility] facilities. Social History Type Response Date Comment Sour e Tobacco smoking status NHIS VA-TOBACCO FORMER USER 01/23/2024 [facility] History of tobacco use VA-TOBACCO QUIT 1 5 YRS OR MORE 01/23/2024 [facility] History of tobacco use VA-TOBACCO FORMER USER 11/22/2022 [facility] History of tobacco use MA-TOBACCO QUIT 5 TO < 15 YRS 07/15/2021 [facility] History of tobacco use VA-TOBACCO NEVER USED 03/04/2019 [facility] History of tobacco use VA-TOBACCO FORMER USER 02/27/2018 [facility] History of tobacco use QUIT TOBACCO >7 Y EARS AGO 02/26/2018 [facility] History of tobacco use QUIT TOBACCO >7 Y EARS AGO 08/28/2017 [facility] History of tobacco use QUIT TOBACCO >12 MO and <7 YRS AGO 05/10/2017 [facility] History of tobacco use QUIT TOBACCO >7 Y EARS AGO 08/21/2016 [facility] History of tobacco use QUIT TOBACCO >12 MO and <7 YRS AGO 11/18/2014 [facility] History of tobacco use QUIT TOBACCO >12 [place] and <7 YRS AGO 04/10/2013 [facility] History of tobacco use LIFETIME NON-USER OF TOBACCO 07/06/2011 [facility] History of tobacco use QUIT TOBACCO >12 [place] and <7 YRS AGO 06/28/2010 [facility] History of tobacco use CURRENT TOBACCO USER 09/01/2009 [facility] History of tobacco use CURRENT TOBACCO USER 2008 [facility] History of tobacco use QUIT TOBACCO >12 [place] and <7 YRS AGO 03/29/2007 [facility] History of tobacco use CURRENT TOBACCO USER 10/11/2006 [facility] History of tobacco use CURRENT TOBACCO USER 06/12/2006 [facility] History of tobacco use CURRENT TOBACCO USER 10/26/2003 [facility] History of tobacco use CURRENT TOBACCO USER 02/05/2003 [facility] History of tobacco use CURRENT TOBACCO USER 11/19/2002 [facility] History of tobacco use CURRENT TOBACCO USER 10/13/2002 [facility] History of tobacco use CURRENT TOBACCO USER 04/14/2002 [facility] Plan of Care List of future care activities from Department of [facility] facilities. Additional future care activities may be listed in the Assessment and Plan section. Date/Time Care Activity Care Activity Detail Facili ty 01/15/2025 AMBULATORY - NONE AMBULATORY - NONE [facility]
--- NOTE | 2025-01-04 19:26 | ED.ARRPALP ---
HPI - Arrhythmia/Palpitations General Chief Complaint: Arrhythmia/Palpitations Stated Complaint: wheezing, dry cough, palpitations Time Seen by Provider: 01/04/25 19:17 Source: patient Mode of arrival: ambulatory Limitations: no limitations History of Present Illness HPI narrative: Patient presents with report wheezes, dry cough, and intermittent palpitations, like a fluter . Symptoms have been occurring for several days. He states that he has experienced palpitations similarly previously when he drank caffeine. No recent travel, no exogenous hormones. No prior DVT or PE. He lives with his and children and his 4-year-old has had a cough productive of mucus. The subjective sound of wheezes woke him from his sleep. He denies any fever chills. No paroxysmal nocturnal dyspnea or orthopnea. He denies any underlying cardiac or respiratory issues. No chest pain. No edema. He does not smoke. Related Data Allergies Allergy/AdvReac Type Severity Reaction Status Date / Time No Known Allergies Allergy Verified 03/05/24 11:19 [facility] Past Medical History Medical History Healthy adult male Surgical History Surgical History No history of previous surgery Social History Social History Smoking status: Never smoker Living arrangements: with family Additional living arrangements comments: and children Exam Narrative: GENERAL: Well-appearing, well-nourished, and in no acute distress. HEAD: Normocephalic, atraumatic. EYES: Non injected, non icteric ENT: Nares clear, no rhinorrhea or epistaxis. NECK: Supple. CHEST: Speaking in full sentences. No respiratory distress. Nonlabored. Patient does have some coarse breath sounds particularly on the right. There are no appreciable wheezes including with forced cough maneuver. HEART: Regular rate and rhythm. ABDOMEN: Soft, nondistended. EXTREMITIES: Normal range of motion. No bilateral lower extremity edema. SKIN: Warm, dry, no rash. NEURO: No focal deficits. Alert and oriented x3. PSYCH: Normal mood and affect. Course Vital Signs Vital signs: Vital Signs Temperature 98.0 F 01/04/25 19:14 Pulse Rate 64 01/04/25 19:14 Respiratory Rate 20 01/04/25 19:14 Blood Pressure 161/93 H 01/04/25 19:14 Pulse Oximetry 99 01/04/25 19:14 Oxygen Delivery Room Air 01/04/25 19:14 Temperature 98.0 F 01/04/25 19:14 Pulse Rate 70 01/04/25 21:40 Respiratory Rate 16 01/04/25 21:40 Blood Pressure 134/92 H 01/04/25 21:40 Pulse Oximetry 99 01/04/25 21:40 Oxygen Delivery Room Air 01/04/25 19:27 MDM - Arrhythmia/Palpitations MDM Narrative Medical decision making narrative: Patient presents with subjective wheeze, dry cough, and intermittent palpitations for the past several days. In the emergency department he is afebrile vital signs notable for hypertension. Chest x-ray without evidence of consolidation/pneumonia. Symptoms consistent with bronchitis. Normocytic anemia, stable. Viral swab negative. Given Tessalon perles in the ED and Rx for the same. Advised follow up with a PCP. Has had palpitations previously so also provided referral for cardiology. Differential Diagnosis Differential diagnosis: Likely palpitations, anxiety, sinus tachycardia, artial fibrillation, artial flutter, ventricular premature beats, supraventricular tachycardia, ventricular tachycardia, WPW and other (electrolyte abnormalities; acute viral syndrome, bronchitis, pneumonia) Lab Data Attestation: I reviewed the patient's lab results. 01/04/25 20:26 01/04/25 20:26 Labs: Lab Results 01/04/25 Range/Units 20:26 WBC 5.2 (4.5-10.0) K/mm3 RBC 4.65 (4.6-6.20) M/mm3 Hgb 12.7 L (14.0-18.0) g/dL Hct 40.5 L (42.0-52.0) % MCV 87.1 (80-100) fl MCH 27.3 (26-34) pg MCHC 31.4 L (32-36) g/dl RDW 13.2 (11.5-14.5) % Plt Count 253 (150-375) k/mm3 MPV 9.4 (7.4-10.4) fl Immature Gran % (Auto) 0.2 (0-0.5) % Neut % (Auto) 28.4 L (45.5-73.1) % Lymph % (Auto) 54.1 H (18.3-44.2) % Nuckolls % (Auto) 9.2 H (2.6-8.5) % Eos % (Auto) 7.3 H (0-4.4) % Baso % (Auto) 0.8 (0.2-1.2) % Lymph # (Auto) 2.81 (0.9-3.2) K/mm3 Nuckolls # (Auto) 0.5 (0.1-0.6) K/mm3 Eos # (Auto) 0.4 H (0-0.3) K/mm3 Baso # (Auto) 0.0 (0.0-0.1) K/mm3 Abs Immat Gran (auto) 0.01 (0.00-0.031) K/mm3 Absolute Neuts (auto) 1.5 (1.3-6.7) K/mm3 Absolute Nucleated RBC 0.000 (0.0-0.012) K/mm3 Nucleated RBC % 0.0 (0.0-0.2) % Sodium 137 (137-145) mmol/L Potassium 4.0 (3.4-5.0) mmol/L Chloride 102 (98-107) mmol/L Carbon Dioxide 27 (22-30) mmol/L Anion Gap 8 (4-12) mmol/L BUN 16 (9-20) mg/dL Creatinine 0.85 (0.7-1.3) mg/dL Estim Creat Clear Calc 109 ml/min Estimated GFR > 60 (59 - ) Glucose 97 (65-110) mg/dL Calcium 8.9 (8.4-10.2) mg/dL Magnesium 1.9 (1.6-2.3) mg/dL Total Bilirubin 0.8 (0.2-1.3) mg/dL AST 42 (17-59) U/L ALT 56 H (6-50) U/L Alkaline Phosphatase 83 (38-126) U/L Total Protein 8.0 (6.3-8.2) g/dL Albumin 4.3 (3.5-5.1) g/dL Influenza A (RT-PCR) Negative (Negative) Influenza B (RT-PCR) Negative (Negative) RSV (RT-PCR) Negative (Negative) SARS-CoV-2 RNA (RT-PCR) Negative (Negative) Imaging Data Radiologist's impression: IMPRESSION: No focal infiltrate or effusion. ECG Data EKG #1: Attestation: I personally reviewed and interpreted this ECG as follows: ECG completion date: 01/04/25 ECG completion time: 19:12 Prior ECG tracings: not available for review (No prior for comparison) Interpretation: Normal sinus rhythm at a rate of 64 beats per minute. MI interval 209. QRS 101. QT/QTC 359/369. Good R-wave progression across the precordial leads. MI interval greater than 200 indicates a 1st he AV block. No T-wave inversions. Discharge Plan Discharge Clinical Impression: First degree atrioventricular block by electrocardiogram, Bronchitis, Normocytic anemia, Elevated ALT measurement, Heart palpitations Patient Disposition: Home Condition: Stable Instructions: Antibiotic Form, Heart Palpitations (ED), Acute Bronchitis (ED), Anemia (ED) Additional Instructions: No evidence of a pneumonia on your chest x-ray severe symptoms are consistent with bronchitis which is typically viral although you tested negative for COVID, influenza a, influenza B, and RSV. No role for an inhaler or antibiotics or steroid but you can use the prescribed medication which can help with cough. Rest and maintain your hydration. No clear etiology of your palpitations based on your EKG, chest xray, or labs. Follow-up with primary care physician. If you do not have 1 the name of doctors listed below. Return to the emergency department with any new, worsening, unmanaged symptoms. If your palpitations persist, the name of a assembler movement is listed below. Patient Language: Icelandic Prescriptions: New benzonatate 100 mg capsule 100 mg PO BID PRN (Reason: cough) Qty: 20 0RF No Action ondansetron 4 mg tablet,disintegrating 4 mg PO Q6H PRN (Reason: nausea and vomiting) Qty: 10 0RF Follow-up/Referrals: Julián Mayfield MD [Physician] - (Cardiology) Hermilo Osman MD [Physician] - (Family practice) UNKNOWN,DOCTOR [Primary Care Provider] - Stand Alone Forms: Work/School Release IP Time of Disposition: 21:27
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
--- OUTSIDE RECORDS SUMMARY | 2025-01-04 19:42 | XMS_ITS | Referral Summary ---
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
--- OUTSIDE RECORDS SUMMARY | 2025-01-04 19:42 | XMS_ITS | Clinical Summary ---
Author Organization 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
--- OUTSIDE RECORDS SUMMARY | 2025-01-04 19:42 | XMS_ITS | Continuity of Care Document ---
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 It does not include entries that were removed or entered in error. Problem Status Onset Date Problem Type Date of Resolution Comments Source Allergic rhinitis Active Condition [facility] Chronic depression Active Condition [facility] Chronic folliculitis (SNOMED CT 632211740) Active Condition [facility] Chronic low back pain Active Condition [facility] Chronic pain Active Condition [facility] Degeneration of lumbar intervertebral disc Active Condition [facility] Erectile dysfunction (SNOMED CT 343014984) Active Condition [facility] Hyperlipidemia Active Condition [facility] Knee pain (SNOMED CT 04438767) Active Condition [facility] Obesity Active Condition [facility] Prediabetes (SCT 996280483) Active Condition [facility] Shoulder pain (SNOMED CT 70627205) Active Condition Aug 21, 2016 Entered By: Ronnie DASILVA Comment: bursitis/ten donitis on MRI b/l 2016 Entered By: Ronnie DASILVA Comment: small RCT L pending surgery with orthoMay 2017 Entered By: Ronnie DASILVA Comment: scope 08/2017Jun 2018 Entered By: Ronnie DASILVA Comment: 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 Contact dermatitis and other eczema (ICD-9-CM 692.9) Inactive Condition 01/23/2024 [facility] Depressive Disorder NOS * (ICD-9-CM 311./300.4) Inactive Condition 01/23/2024 [facility] Elevated blood-pressure reading without diagnosis of hypertension Inactive Condition 01/23/2024 [facility] Sprains and strains of knee and leg (ICD-9-CM 844.9) Inactive Condition 11/28/2022 [facility] Stye Inactive Condition 03/03/2019 [facility] Diagnosis: ICD-10-CM F43.12 Post-traumatic stress disorder, chronic Active Diagnosis [facility] Diagnosis: ICD-10-CM F43.20 Adjustment disorder, unspecified Active Diagnosis [facility] Diagnosis: ICD-10-CM M54.50 Low back pain, unspecified Active Diagnosis [facility] Diagnosis: ICD-10-CM G89.29 Other chronic pain Active Diagnosis [facility] Diagnosis: ICD-10-CM F43.23 Adjustment disorder with mixed anxiety and depressed mood Active Diagnosis [facility] Diagnosis: ICD-10-CM F43.22 Adjustment disorder with anxiety Active Diagnosis [facility] Diagnosis: ICD-10-CM R73.[address] [facility] Medications Combined list of outpatient medications from Department of Defense and [facility] Affairs facilities.Medications provided include 1) outpatient medications from the last 15 months, and 2) patient-reported medications. Medication Details Route Status Patient Instructions Prescription Expires Prescription Number Last Dispense Date Ordering Provider Order Date Order Qty Source BENZOYL PEROXIDE 10% WASH WASH SMALL AMOUNT TO AFFECTED AREA(S) ONCE A DAY FOR ACNE TOPICA L ACTIVE 01/23/2025 [id number] 5 DENVER PALUMBO 2023 450 [facility] BENZOYL PEROXIDE 10% WASH WASH SMALL AMOUNT TO AFFECTED AREA(S) ONCE A DAY FOR ACNE TOPICA L DISCONT INUED 02/14/2024 [id number] SHANNON KINGSTON SA 2022 450 [facility] CAMPHOR/MEN THOL/METHYL SALICYLATE LARGE PATCH APPLY 1 PATCH TO SKIN SITE ONCE A DAY (EXTERNA L USE ONLY) TRANSD ERMAL ACTIVE 10/03/2025 [id number] 5 DENVER PALUMBO 2024 90 [facility] CAPSAICIN 0.025% CREAM,TOP APPLY LIGHTLY TO AFFECTED AREA(S) FOUR TIMES A DAY FOR PAIN. EXTERNAL USE ONLY. WASH HANDS AFTER APPLICAT ION. TOPICA L 02/14/2024 [id number] 4 SHANNON KINGSTON SA 2022 60 [facility] CETIRIZINE HCL 10MG TAB TAKE ONE TABLET BY MOUTH ONCE A DAY FOR ALLERGY SYMPTOMS . ORAL ACTIVE 12/24/2025 [id number] 5 DENVER PALUMBO 2024 90 [facility] CETIRIZINE HCL 10MG TAB TAKE ONE TABLET BY MOUTH ONCE A DAY FOR ALLERGY SYMPTOMS . ORAL DISCONT INUED 01/23/2025 [id number] 5 DENVER PALUMBO 2023 90 [facility] CETIRIZINE HCL 10MG TAB TAKE ONE TABLET BY MOUTH ONCE A DAY FOR ALLERGY SYMPTOMS . ORAL DISCONT INUED 02/14/2024 [id number] 4 SHANNON KINGST[place] SA 2022 90 [facility] CHOLECALCIF TERRY 25MCG (1,000UNIT) TAB TAKE THREE TABLETS BY MOUTH ONCE A DAY FOR VITAMIN D DEFICIEN CY ORAL ACTIVE 01/23/2025 [id number] 5 DENVER PALUMBO 2023 300 [facility] CYCLOBENZAP RINE HCL 10MG TAB TAKE ONE TABLET BY MOUTH AT BEDTIME NEEDED MAY CAUSE DROWSINE SS. DO NOT DRINK ALCOHOL WHILE TAKING THIS MEDICATI ON. ORAL ACTIVE 10/03/2025 [id number] 5 DENVER PALUMBO 2024 90 [facility] DICLOFENAC NA 1% GEL,TOP APPLY 2 GM TO AFFECTED AREA(S) FOUR TIMES A DAY NO MORE THAN 16 GM/DAY TO ANY LOWER EXTREMIT Y JOINT. NO MORE THAN 8 GM/DAY TO ANY UPPER EXTREMIT Y JOINT. MAX 32GM/DAY OVER ALL JOINTS.( MEASURE DOSE WITH RULER INSIDE BOX) TOPICA L ACTIVE 10/03/2025 [id number] 5 DENVER PALUMBO 2024 200 [facility] IBUPROFEN 800MG TAB TAKE ONE TABLET BY MOUTH THREE TIMES A DAY NEEDED FOR PAIN OR INFLAMMA TION. TAKE WITH FOOD. ORAL ACTIVE 01/23/2025 [id number] 4 DENVER PALUMBO 2023 90 [facility] SILDENAFIL CITRATE 100MG TAB TAKE ONE TABLET BY MOUTH EVERY WEEK NEEDED FOR ERECTILE DYSFUNCT ION (TAKE 60 MINUTES PRIOR TO SEXUAL ACTIVITY ) - LIMIT 6 DOSES PER 30 DAYS ORAL ACTIVE 10/03/2025 [id number] 5 DENVER PALUMBO 2024 18 [facility] SILDENAFIL CITRATE 100MG TAB TAKE ONE TABLET BY MOUTH EVERY WEEK NEEDED FOR ERECTILE DYSFUNCT ION (TAKE 60 MINUTES PRIOR TO SEXUAL ACTIVITY ) - LIMIT 6 DOSES PER 30 DAYS ORAL DISCONT INUED (EDIT) 08/21/2025 [id number] 4 DENVER PALUMBO 2023 6 [facility] SILDENAFIL CITRATE 100MG TAB TAKE ONE TABLET BY MOUTH EVERY WEEK NEEDED FOR ERECTILE DYSFUNCT ION (TAKE 60 MINUTES PRIOR TO SEXUAL ACTIVITY ) - LIMIT 6 DOSES PER 30 DAYS ORAL DISCONT INUED 01/23/2025 [id number] 4 DENVER PALUMBO 2023 6 [facility] SILDENAFIL CITRATE 100MG TAB TAKE ONE TABLET BY MOUTH EVERY WEEK NEEDED FOR ERECTILE DYSFUNCT ION (TAKE 60 MINUTES PRIOR TO SEXUAL ACTIVITY ) - LIMIT 6 DOSES PER 30 DAYS ORAL DISCONT INUED 07/06/2024 [id number] 4 DENVER PALUMBO 2022 6 [facility] Allergies, Adverse Reactions, Alerts Combined list of allergies from Department of Defense and Veterans Affairs facilities. It does not include entries that were removed or entered in error. Substance Category Reaction Severity Reaction type Status Date Reported Comments Source NIASPAN Propensity to adverse reactions to drug (finding) [place] active 04/05/2009 [facility] Immunizations Combined list of available immunizations from the Department of Defense and Veterans Affairs facilities. Immunization Series Date Given Administered By Site Reaction Lot Number CVX Code Drug Commercial Specialist Status Comments Source TDAP 2023 RESHMA JARQUIN RIGHT DELTO ID [id number] 115 complet ed [facility] TDAP 2007 115 complet ed Left Deltoid [facility] INFLUENZA, UNSPECIFIED FORMULATION 2006 88 complet ed [facility] INFLUENZA, UNSPECIFIED FORMULATION 2005 88 complet ed [facility] TDAP 2005 115 complet ed Right Deltoid [facility] Results Combined list of recent chemistry, hematology and other laboratory results from Department of Defense and Veterans Affairs, ranging from 15 months to all on record, depending upon the facility. Order Name Results Value Reference Range Date Interpretation Specimen Comments Source CBC LEUKOCYTES [#/VOLUME] IN BLOOD BY AUTOMATED COUNT 4.1 10*3/u L 3.6 - 11.2 01/22 Specimen Type: BLOOD No comment entered. Ordering Provider: ROSCOE PALUMBO Report Released Date/Time: Jan 23, 2024 10:41 AM Reporting Lab: [facility] [address] [facility] [address] Performing Lab: [facility] [address] [place] [phone] [place] [address] [facility] CBC ERYTHROCYTE S [#/VOLUME] IN BLOOD BY AUTOMATED COUNT 4.89 10*6/u L 4.10 - 5.70 01/22 Specimen Type: BLOOD No comment entered. Ordering Provider: ROSCOE PALUMBO Report Released Date/Time: Jan 23, 2024 10:41 AM Reporting Lab: [facility] [address] [place] [phone] Performing Lab: [facility] [address] [place] [phone] [facility] CBC HEMOGLOBIN [MASS/VOLUM E] IN BLOOD 13.4 g/dL 13.1 - 16.8 01/22 Specimen Type: BLOOD No comment entered. Ordering Provider: ROSCOE PALUMBO Report Released Date/Time: Jan 23, 2024 10:41 AM Reporting Lab: [facility] [address] [facility] [address] Performing Lab: [address] [address] [facility] CBC HEMATOCRIT [VOLUME FRACTION] OF BLOOD 42.0 38.2 - 48.4 01/22 Specimen Type: BLOOD No comment entered. Ordering Provider: ROSCOE PALUMBO Report Released Date/Time: Jan 23, 2024 10:41 AM Reporting Lab: [address] [address] Performing Lab: [address] [address] [facility] CBC MCV [ENTITIC VOLUME] BY AUTOMATED COUNT 85.9 fL 80.0 - 100.0 01/22 Specimen Type: BLOOD No comment entered. Ordering Provider: ROSCOE PALUMBO Report Released Date/Time: Jan 23, 2024 10:41 AM Reporting Lab: [address] [address] Performing Lab: [address] [address] [facility] CBC MCH [ENTITIC MASS] BY AUTOMATED COUNT 27.4 pg 27.0 - 34.0 01/22 Specimen Type: BLOOD No comment entered. Ordering Provider: ROSCOE PALUMBO Report Released Date/Time: Jan 23, 2024 10:41 AM Reporting Lab: [address] [address] Performing Lab: [address] [address] [facility] CBC MCHC [MASS/VOLUM E] BY AUTOMATED COUNT 31.9 g/dL 33.0 - 36.0 01/22 L Specimen Type: BLOOD No comment entered. Ordering Provider: ROSCOE PALUMBO Report Released Date/Time: Jan 23, 2024 10:41 AM Reporting Lab: [address] [address] Performing Lab: [facility] [address] [address] [facility] CBC PLATELETS [#/VOLUME] IN BLOOD BY AUTOMATED COUNT 324 10*3/u L 150 - 400 01/22 Specimen Type: BLOOD No comment entered. Ordering Provider: ROSCOE PALUMBO Report Released Date/Time: Jan 23, 2024 10:41 AM Reporting Lab: [address] [address] Performing Lab: [address] [address] [facility] CBC PLATELET MEAN VOLUME [ENTITIC VOLUME] IN BLOOD BY AUTOMATED COUNT 10.7 fL 7.5 - 11.2 01/22 Specimen Type: BLOOD No comment entered. Ordering Provider: ROSCOE PALUMBO Report Released Date/Time: Jan 23, 2024 10:41 AM Reporting Lab: [address] [address] Performing Lab: [address] [address] [facility] CBC ERYTHROCYTE DISTRIBUTIO N WIDTH [RATIO] BY AUTOMATED COUNT 13.1 11.8 - 15.1 01/22 Specimen Type: BLOOD No comment entered. Ordering Provider: ROSCOE PALUMBO Report Released Date/Time: Jan 23, 2024 10:41 AM Reporting Lab: [address] [address] Performing Lab: [address] [address] [facility] CBC LYMPHOCYTES /100 LEUKOCYTES IN BLOOD BY AUTOMATED COUNT 56 01/22 Specimen Type: BLOOD No comment entered. Ordering Provider: ROSCOE PALUMBO Report Released Date/Time: Jan 23, 2024 10:41 AM Reporting Lab: [address] [address] Performing Lab: [address] [address] [facility] CBC MONOCYTES/1 00 LEUKOCYTES IN BLOOD BY AUTOMATED COUNT 7 01/22 Specimen Type: BLOOD No comment entered. Ordering Provider: ROSCOE PALUMBO Report Released Date/Time: Jan 23, 2024 10:41 AM Reporting Lab: [facility] [address] [facility] [address] Performing Lab: [facility] [address] [facility] [address] [facility] CBC NEUTROPHILS /100 LEUKOCYTES IN BLOOD BY AUTOMATED COUNT 32 01/22 Specimen Type: BLOOD No comment entered. Ordering Provider: ROSCOE PALUMBO Report Released Date/Time: Jan 23, 2024 10:41 AM Reporting Lab: [facility] [address] [facility] [address] Performing Lab: [facility] [address] [facility] [address] [facility] CBC EOSINOPHILS /100 LEUKOCYTES IN BLOOD BY AUTOMATED COUNT 5 01/22 Specimen Type: BLOOD No comment entered. Ordering Provider: ROSCOE PALUMBO Report Released Date/Time: Jan 23, 2024 10:41 AM Reporting Lab: [facility] [address] [facility] [address] Performing Lab: [facility] [address] [facility] [address] [facility] CBC BASOPHILS/1 00 LEUKOCYTES IN BLOOD BY AUTOMATED COUNT 1 01/22 Specimen Type: BLOOD No comment entered. Ordering Provider: ROSCOE PALUMBO Report Released Date/Time: Jan 23, 2024 10:41 AM Reporting Lab: [facility] [address] [facility] [address] Performing Lab: [facility] [address] [facility] CBC LYMPHOCYTES [#/VOLUME] IN BLOOD BY AUTOMATED COUNT 2.30 10*3/u L 0.77 - 4.50 01/22 Specimen Type: BLOOD No comment entered. Ordering Provider: ROSCOE PALUMBO Report Released Date/Time: Jan 23, 2024 10:41 AM Reporting Lab: [facility] [address] [place] [phone] Performing Lab: [facility] [address] [place] [phone] [facility] CBC MONOCYTES [#/VOLUME] IN BLOOD BY AUTOMATED COUNT 0.27 10*3/u L 0.19 - 0.80 01/22 Specimen Type: BLOOD No comment entered. Ordering Provider: ROSCOE PALUMBO Report Released Date/Time: Jan 23, 2024 10:41 AM Reporting Lab: [address] [address] Performing Lab: [address] [phone] [facility] CBC NEUTROPHILS [#/VOLUME] IN BLOOD BY AUTOMATED COUNT 1.32 10*3/u L 2.10 - 8.00 01/22 L Specimen Type: BLOOD No comment entered. Ordering Provider: ROSCOE PALUMBO Report Released Date/Time: Jan 23, 2024 10:41 AM Reporting Lab: [address] [address] Performing Lab: [address] [phone] [place] [address] [facility] CBC EOSINOPHILS [#/VOLUME] IN BLOOD BY AUTOMATED COUNT 0.19 10*3/u L 0.00 - 0.60 01/22 Specimen Type: BLOOD No comment entered. Ordering Provider: ROSCOE PALUMBO Report Released Date/Time: Jan 23, 2024 10:41 AM Reporting Lab: [facility] [address] [place] [address] Performing Lab: [address] [address] [facility] CBC BASOPHILS [#/VOLUME] IN BLOOD BY AUTOMATED COUNT 0.05 10*3/u L 0.00 - 0.20 01/22 Specimen Type: BLOOD No comment entered. Ordering Provider: ROSCOE PALUMBO Report Released Date/Time: Jan 23, 2024 10:41 AM Reporting Lab: [facility] [address] [facility] [address] Performing Lab: [place] [address] [facility] [address] [facility] COMPREHENS DE METABOLIC PANEL CREATININE [MASS/VOLUM E] IN SERUM OR PLASMA 0.91 mg/dL 0.7 - 1.3 01/22 Specimen Type: PLASMA Comment: No hemolysis noted. Ordering Provider: ROSCOE PALUMBO Report Released Date/Time: Jan 23, 2024 10:41 AM Reporting Lab: [place] [address] [facility] [address] Performing Lab: [address] [address] [facility] COMPREHENS DE METABOLIC PANEL UREA NITROGEN [MASS/VOLUM E] IN SERUM OR PLASMA 13.9 mg/dL 9.0 - 25.0 01/22 Specimen Type: PLASMA Comment: No hemolysis noted. Ordering Provider: ROSCOE PALUMBO Report Released Date/Time: Jan 23, 2024 10:41 AM Reporting Lab: [address] [address] Performing Lab: [place] [address] [facility] [address] [facility] COMPREHENS DE METABOLIC PANEL GLUCOSE [MASS/VOLUM E] IN SERUM OR PLASMA 77 mg/dL 72 - 99 01/22 Specimen Type: PLASMA Comment: No hemolysis noted. Ordering Provider: ROSCOE PALUMBO Report Released Date/Time: Jan 23, 2024 10:41 AM Reporting Lab: [place] [address] [facility] [address] Performing Lab: [address] [address] [facility] COMPREHENS DE METABOLIC PANEL SODIUM [MOLES/VOLU ME] IN SERUM OR PLASMA 139 meq/L 136 - 145 01/22 Specimen Type: PLASMA Comment: No hemolysis noted. Ordering Provider: ROSCOE PALUMBO Report Released Date/Time: Jan 23, 2024 10:41 AM Reporting Lab: [facility] [address] [facility] [address] Performing Lab: [facility] [address] [facility] [address] [facility] COMPREHENS DE METABOLIC PANEL POTASSIUM [MOLES/VOLU ME] IN SERUM OR PLASMA 4.1 meq/L 3.5 - 5 01/22 Specimen Type: PLASMA Comment: No hemolysis noted. Ordering Provider: ROSCOE PALUMBO Report Released Date/Time: Jan 23, 2024 10:41 AM Reporting Lab: [place] [address] [facility] [address] Performing Lab: [place] [address] [facility] [address] [facility] COMPREHENS DE METABOLIC PANEL CHLORIDE [MOLES/VOLU ME] IN SERUM OR PLASMA 105 meq/L 98 - 107 01/22 Specimen Type: PLASMA Comment: No hemolysis noted. Ordering Provider: ROSCOE PALUMBO Report Released Date/Time: Jan 23, 2024 10:41 AM Reporting Lab: [place] [address] [facility] [address] Performing Lab: [place] [address] [facility] [address] [facility] COMPREHENS DE METABOLIC PANEL CARBON DIOXIDE, TOTAL [MOLES/VOLU ME] IN SERUM OR PLASMA 26 meq/L 22 - 31 01/22 Specimen Type: PLASMA Comment: No hemolysis noted. Ordering Provider: ROSCOE PALUMBO Report Released Date/Time: Jan 23, 2024 10:41 AM Reporting Lab: [facility] [address] Performing Lab: [facility] [address] [place] [phone] [facility] COMPREHENS DE METABOLIC PANEL CALCIUM [MASS/VOLUM E] IN SERUM OR PLASMA 9.7 mg/dL 8.4 - 10.4 01/22 Specimen Type: PLASMA Comment: No hemolysis noted. Ordering Provider: ROSCOE PALUMBO Report Released Date/Time: Jan 23, 2024 10:41 AM Reporting Lab: [address] [address] Performing Lab: [place] [address] [facility] [address] [facility] COMPREHENS DE METABOLIC PANEL PROTEIN [MASS/VOLUM E] IN SERUM OR PLASMA 7.8 g/dL 6 - 8.6 01/22 Specimen Type: PLASMA Comment: No hemolysis noted. Ordering Provider: ROSCOE PALUMBO Report Released Date/Time: Jan 23, 2024 10:41 AM Reporting Lab: [address] [address] Performing Lab: [place] [address] [facility] [address] [facility] COMPREHENS DE METABOLIC PANEL ALBUMIN [MASS/VOLUM E] IN SERUM OR PLASMA 4.5 g/dL 3.4 - 5 01/22 Specimen Type: PLASMA Comment: No hemolysis noted. Ordering Provider: ROSCOE PALUMBO Report Released Date/Time: Jan 23, 2024 10:41 AM Reporting Lab: [place] [address] [facility] [address] Performing Lab: [place] [address] [facility] [address] [facility] COMPREHENS DE METABOLIC PANEL BILIRUBIN.T OTAL [MASS/VOLUM E] IN SERUM OR PLASMA 0.7 mg/dL 0.2 - 1.2 01/22 Specimen Type: PLASMA Comment: No hemolysis noted. Ordering Provider: ROSCOE PALUMBO Report Released Date/Time: Jan 23, 2024 10:41 AM Reporting Lab: [address] [address] Performing Lab: [place] [address] [facility] [address] [facility] COMPREHENS DE METABOLIC PANEL ALKALINE PHOSPHATASE [ENZYMATIC ACTIVITY/VO LUME] IN SERUM OR PLASMA 75 U/L 40 - 150 01/22 Specimen Type: PLASMA Comment: No hemolysis noted. Ordering Provider: ROSCOE PALUMBO Report Released Date/Time: Jan 23, 2024 10:41 AM Reporting Lab: [address] [address] Performing Lab: [address] [address] [facility] COMPREHENS DE METABOLIC PANEL ASPARTATE AMINOTRANSF ERASE [ENZYMATIC ACTIVITY/VO LUME] IN SERUM OR PLASMA 28 U/L 5 - 34 01/22 Specimen Type: PLASMA Comment: No hemolysis noted. Ordering Provider: ROSCOE PALUMBO Report Released Date/Time: Jan 23, 2024 10:41 AM Reporting Lab: [address] [address] Performing Lab: [address] [address] [facility] COMPREHENS DE METABOLIC PANEL ALANINE AMINOTRANSF ERASE [ENZYMATIC ACTIVITY/VO LUME] IN SERUM OR PLASMA 34 U/L 8 - 40 01/22 Specimen Type: PLASMA Comment: No hemolysis noted. Ordering Provider: ROSCOE PALUMBO Report Released Date/Time: Jan 23, 2024 10:41 AM Reporting Lab: [address] [address] Performing Lab: [address] [address] [facility] COMPREHENS DE METABOLIC PANEL GLOMERULAR FILTRATION RATE/1.73 SQ M.PREDICTED [VOLUME RATE/AREA] IN SERUM, PLASMA OR BLOOD BY CREATININE- BASED FORMULA (CKD-EPI 2020) 102.7 60 01/22 Specimen Type: PLASMA Comment: No hemolysis noted. Ordering Provider: ROSCOE PALUMBO Report Released Date/Time: Jan 23, 2024 10:41 AM Reporting Lab: [address] [address] Performing Lab: [address] [address] [facility] HGA1C HEMOGLOBIN A1C/HEMOGLO BIN.TOTAL IN BLOOD 6.2 4.0 - 6.0 01/22 H Specimen Type: BLOOD No comment entered. Ordering Provider: ROSCOE PALUMBO Report Released Date/Time: Jan 23, 2024 10:41 AM Reporting Lab: [address] [address] Performing Lab: [address] [address] [facility] LIPID PANEL (STL) CHOLESTEROL [MASS/VOLUM E] IN SERUM OR PLASMA 197 mg/dL 0 - 200 01/22 Specimen Type: PLASMA Comment: No hemolysis noted. Ordering Provider: ROSCOE PALUMBO Report Released Date/Time: Jan 23, 2024 10:41 AM Reporting Lab: [address] [address] Performing Lab: [address] [address] [facility] LIPID PANEL (STL) TRIGLYCERID E [MASS/VOLUM E] IN SERUM OR PLASMA 179 mg/dL 0 - 150 01/22 H Specimen Type: PLASMA Comment: No hemolysis noted. Ordering Provider: ROSCOE PALUMBO Report Released Date/Time: Jan 23, 2024 10:41 AM Reporting Lab: [address] [address] Performing Lab: [address] [address] [facility] LIPID PANEL (STL) CHOLESTEROL IN LDL [MASS/VOLUM E] IN SERUM OR PLASMA BY CALCULATION 120 mg/dL 01/22 Specimen Type: PLASMA Comment: No hemolysis noted. Ordering Provider: ROSCOE PALUMBO Report Released Date/Time: Jan 23, 2024 10:41 AM Reporting Lab: [address] [address] Performing Lab: [address] [address] [facility] LIPID PANEL (STL) CHOLESTEROL IN HDL [MASS/VOLUM E] IN SERUM OR PLASMA 41 mg/dL 40 01/22 Specimen Type: PLASMA Comment: No hemolysis noted. Ordering Provider: ROSCOE PALUMBO Report Released Date/Time: Jan 23, 2024 10:41 AM Reporting Lab: [place] [address] Performing Lab: [address] [facility] PROST. SPECIFIC AG.(PB-STL ) PROSTATE SPECIFIC [...] Jan 23, 2024 10:42 AM Reporting Lab: [place] [address] [place] [address] Performing Lab: [place] [address] [facility] TSH W/ REFLEX FT4 (STL) THYROTROPIN [UNITS/VOLU ME] IN SERUM OR PLASMA 0.599 u[IU]/ mL 0.47 - 5 01/22 Specimen Type: PLASMA No comment entered. Ordering Provider: ROSCOE PALUMBO Report Released Date/Time: Jan 23, 2024 10:42 AM Reporting Lab: [place] [address] [place] [address] Performing Lab: [address] [facility] VITAMIN D, 25-HYDROXY 25-HYDROXYV ITAMIN [...] Jan 23, 2024 10:42 AM Reporting Lab: [facility] [address] [facility] [address] Performing Lab: [facility] [address] [facility] [address] [facility] Vital Signs Combined list of inpatient and outpatient Vital Signs from Department of Defense and Veterans Affairs, ranging from 12 months to all on record, depending upon the facility. Vital Sign Value Date Comments Source SYSTOLIC BLOOD PRESSURE 143 10/02/2024 10:04:31 [facility] DIASTOLIC BLOOD PRESSURE 83 10/02/2024 10:04:31 [facility] PULSE OXIMETRY 97 10/02/2024 10:04:31 [facility] WEIGHT 225 10/02/2024 10:04:31 [facility] BMI 31 kg/m2 10/02/2024 10:04:31 [facility] PAIN 8 10/02/2024 10:04:31 [facility] TEMPERATURE 97.9 10/02/2024 10:04:31 [facility] PULSE 64 10/02/2024 10:04:31 [facility] RESPIRATION 18 10/02/2024 10:04:31 [facility] SYSTOLIC BLOOD PRESSURE 137 01/23/2024 10:31:56 [facility] DIASTOLIC BLOOD PRESSURE 75 01/23/2024 10:31:56 [facility] PULSE OXIMETRY 97 01/23/2024 10:31:56 [facility] WEIGHT 222.6 01/23/2024 10:31:56 [facility] BMI 31 kg/m2 01/23/2024 10:31:56 [facility] PAIN 7 01/23/2024 10:31:56 [facility] TEMPERATURE 98.7 01/23/2024 10:31:56 [facility] PULSE 64 01/23/2024 10:31:56 [facility] RESPIRATION 20 01/23/2024 10:31:56 [facility] Encounters Combined list of: 1) Encounters from Department of Veterans Affairs facilities going backup to the last 18 months, not all VA inpatient encounters are included; 2) Encounters from the Department of Defense facilities going backup to 280 months. Location Location Details Encounter Type Encounter Number Reason For Visit Attending Provider ADM Date DC Date Status Disposition Source [facility] Outpatient Encounter [id number] DIANA JARQUIN 07/06 [facility] Outpatient Encounter [id number] 01/22 [facility] OFFICE O/P EST MOD 30 MIN [id number] Diagnos is: ICD-10- CM R73.03 Prediab etes DEEPALI,Karime ODD 01/22 [facility] PSYTX W PT 30 MINUTES [id number] Diagnos is: ICD-10- CM F43.22 Adjustm ent disorde r with anxiety Janneth FINLEY 01/22 [facility] Outpatient Encounter [id number] DEEPALI,Karime ODD 01/23 [facility] PSYTX W PT 30 MINUTES [id number] Diagnos is: ICD-10- CM F43.20 Adjustm ent disorde r, unspeci fied Janneth FINLEY 02/04 [facility] Outpatient Encounter [id number] Janneth FINLEY 03/04 [facility] Outpatient Encounter [id number] 04/08 [facility] Outpatient Encounter [id number] 04/08 [facility] Outpatient Encounter [id number] 04/22 [facility] En[facility] [id number] 04/[address] [facility] PSYTX W PT 30 MINUTES [id number] Diagnos is: ICD-10- CM F43.20 Adjustm ent disorde r, unspeci fied Janneth FINLEY 05/13 [facility] PSYTX W PT 30 MINUTES [id number] Diagnos is: ICD-10- CM F43.22 Adjustm ent disorde r with anxiety Janneth FINLEY 06/10 [facility] PSYTX W PT 30 MINUTES [id number] Diagnos is: ICD-10- CM F43.22 Adjustm ent disorde r with anxiety Janneth FINLEY 06/24 [facility] PSYTX W PT 30 MINUTES [id number] Diagnos is: ICD-10- CM F43.22 Adjustm ent disorde r with anxiety Janneth FINLEY 07/08 [facility] ASSMT/REAS SESSMENT [id number] Diagnos is: ICD-10- CM F43.20 Adjustm ent disorde r, unspeci fiangela MENDEZ [place],TH ERESA 07/15 [facility] PSYTX W PT 30 MINUTES [id number] Diagnos is: ICD-10- CM F43.23 Adjustm ent disorde r with mixed anxiety and depress ed mood Janneth FINLEY 07/22 [facility] Outpatient Encounter [id number] Chiara PARKS 07/22 [facility] Outpatient Encounter [id number] 07/[address] [facility] OFFICE O/P EST LOW 20 MIN [id number] Diagnos is: ICD-10- CM M54.50 Low back pain, unspeci fied DEEPALI,Karime ODD 10/02 [facility] Outpatient Encounter [id number] DEEPALI,T ODD 10/21 [facility] Outpatient Encounter [id number] Chiara PARKS 10/28 [facility] PSYCHOTHER APY [id number] Diagnos is: ICD-10- CM F43.12 Post-tr aumatic stress disorde r, chronic Janneth FINLEY 10/30 [facility] IVNTJ GRP EA ADDL [id number] Diagnos is: ICD-10- CM G89.29 Other chronic pain Chiara PARKS 11/04 [facility] EXERCISES [id number] [id number] Diagnos is: ICD-10- CM M54.50 Low back pain, unspeci fied TEMITOPE RAMOS 11/04 [facility] PSYCHOTHER APY [id number] Diagnos is: ICD-10- CM F43.12 Post-tr aumatic stress disorde r, Janneth Kiran ARVA 11/06 [facility] IVNTJ GRP EA ADDL [id number] Diagnos is: ICD-10- CM G89.29 Other chronic pain Chiara PARKS RITTANY J 11/11 [facility] PSYCHOTHER APY [id number] Diagnos is: ICD-10- CM F43.12 Post-tr aumatic stress disorde r, Janneth Kiran ARVA 11/13 [facility] IVNTJ GRP EA ADDL [id number] Diagnos is: ICD-10- CM G89.29 Other chronic pain PARKSChiara RITTANY J 11/18 [facility] PSYCHOTHER APY [id number] Diagnos is: ICD-10- CM F43.12 Post-tr aumatic stress disorde r, chronic Janneth FINLEY ARVA 11/20 [facility] IVNTJ GRP EA ADDL [id number] Diagnos is: ICD-10- CM G89.29 Other chronic pain PARKSChiara RITTANY J 12/02 [facility] PSYCHOTHER APY [id number] Diagnos is: ICD-10- CM F43.12 Post-tr aumatic stress disorde r, chronic Janneth FINLEY ARVA 12/04 [facility] [id number] Diagnos is: ICD-10- CM M54.50 Low back pain, unspeci fiTEMITOPE Richard 12/08 [facility] Outpatient Encounter [id number] Chiara PARKS 12/09 [facility] Outpatient Encounter [id number] BRANDYN RACQUEL M 12/10 [facility] GROUP PSYCHOTHER APY [id number] Diagnos is: ICD-10- CM F43.20 Adjustm ent disorde r, unspeci fied Janneth FINLEY 12/11 [facility] Outpatient Encounter [id number] 12/31 [facility] GROUP PSYCHOTHER APY [id number] Diagnos is: ICD-10- CM F43.12 Post-tr aumatic stress disorde r, chronic Janneth FINLEY ARVA 01/01 [facility] Social History Combined list of available smoking, tobacco, and 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 Social History Type Response Date Comment Sour e Tobacco smoking status NHIS VA-TOBACCO FORMER USER 01/23/2024 [facility] History of tobacco use VA-TOBACCO QUIT 1 5 YRS OR MORE 01/23/2024 [facility] History of tobacco use VA-TOBACCO FORMER USER 11/22/2022 [facility] History of tobacco use AL-TOBACCO QUIT 5 TO < 15 YRS 07/15/2021 [facility] History of tobacco use VA-TOBACCO NEVER USED 03/04/2019 [facility] History of tobacco use VA-TOBACCO FORMER USER 02/27/2018 [facility] History of tobacco use QUIT TOBACCO >7 Y EARS AGO 02/26/2018 [facility] History of tobacco use QUIT TOBACCO >7 Y EARS AGO 08/28/2017 [facility] History of tobacco use QUIT TOBACCO >12 MO and <7 YRS AGO 05/10/2017 [facility] History of tobacco use QUIT TOBACCO >7 Y EARS AGO 08/21/2016 [facility] History of tobacco use QUIT TOBACCO >12 MO and <7 YRS AGO 11/18/2014 [facility] History of tobacco use QUIT TOBACCO >12 MO and <7 YRS AGO 04/10/2013 [facility] History of tobacco use LIFETIME NON-USER OF TOBACCO 07/06/2011 [facility] History of tobacco use QUIT TOBACCO >12 MO and <7 YRS AGO 06/28/2010 [facility] History of tobacco use CURRENT TOBACCO USER 09/01/2009 [facility] History of tobacco use CURRENT TOBACCO USER 2008 [facility] History of tobacco use QUIT TOBACCO >12 MO and <7 YRS AGO 03/29/2007 [facility] History of tobacco use CURRENT TOBACCO USER 10/11/2006 [facility] History of tobacco use CURRENT TOBACCO USER 06/12/2006 [facility] History of tobacco use CURRENT TOBACCO USER 10/26/2003 [facility] History of tobacco use CURRENT TOBACCO USER 02/05/2003 [facility] History of tobacco use CURRENT TOBACCO USER 11/19/2002 [facility] History of tobacco use CURRENT TOBACCO USER 10/13/2002 [facility] History of tobacco use CURRENT TOBACCO USER 04/14/2002 [facility] Plan of Care List of future care activities from Department of [facility] Affairs facilities. Additional future care activities may be listed in the Assessment and Plan section. Date/Time Care Activity Care Activity Detail Facili ty 01/15/2025 AMBULATORY - NONE AMBULATORY - NONE [facility]
[2025-01-04 20:32] LABS: Basophils Percent Auto 0.8 % (0.2-1.2); Eosinophils Absolute Auto 0.4 K/mm3 (0-0.3); Eosinophils Percent Auto 7.3 % (0-4.4); Hematocrit 40.5 % (42.0-52.0); Hemoglobin 12.7 g/dL (14.0-18.0); Immature Granulocyte Absolute 0.01 K/mm3 (0.00-0.031); Immature Granulocyte Percent A 0.2 % (0-0.5); Lymphocytes Absolute Auto 2.81 K/mm3 (0.9-3.2); Lymphocytes Percent Auto 54.1 % (18.3-44.2); Mean Corpuscular HGB Conc 31.4 g/dl (32-36); Mean Corpuscular Hemoglobin 27.3 pg (26-34); Mean Corpuscular Volume 87.1 fl (80-100); Mean Platelet Volume 9.4 fl (7.4-10.4); Monocytes Absolute Auto 0.5 K/mm3 (0.1-0.6); Monocytes Percent Auto 9.2 % (2.6-8.5); Neutrophils Absolute Auto 1.5 K/mm3 (1.3-6.7); Neutrophils Percent Auto 28.4 % (45.5-73.1); Platelet Count Result 253 k/mm3 (150-375); Red Blood Count 4.65 M/mm3 (4.6-6.20); Red Cell Distribution Width 13.2 % (11.5-14.5); White Blood Count 5.2 K/mm3 (4.5-10.0)
[2025-01-04 20:42] LABS: Alanine Aminotransferase 56 U/L (6-50); Albumin Level 4.3 g/dL (3.5-5.1); Alkaline Phosphatase 83 U/L (38-126); Anion Gap 8 mmol/L (4-12); Aspartate Amino Transferase 42 U/L (17-59); Bilirubin,Total 0.8 mg/dL (0.2-1.3); Blood Urea Nitrogen 16 mg/dL (9-20); Calcium 8.9 mg/dL (8.4-10.2); Carbon Dioxide 27 mmol/L (22-30); Chloride 102 mmol/L (98-107); Estimated CRCL calculation 109 ml/min; Estimated Glomerular Filt Rate > 60; Glucose 97 mg/dL (65-110); Magnesium 1.9 mg/dL (1.6-2.3); Sodium 137 mmol/L (137-145)
[2025-01-04 21:07] LABS: Influenza A QL RT-PCR Negative (Negative); Influenza B QL RT-PCR Negative (Negative); RSV RNA, RT-PCR Negative (Negative); SARS-CoV-2 RNA PCR Negative (Negative)
[2025-01-04] MEDS: BENZONATATE 100 MG CAPSULE PO (21:35)
== END 2025-01-04 21:38 | disposition home or self-care (01) ==
PROVIDERS: Emergency Provider Student in an Organized Health Care Education/Training Program
DX: I44.0 Atrioventricular block, first degree (principal); J40 Bronchitis, not specified as acute or chronic; D64.9 Anemia, unspecified; R74.01 Elevation of levels of liver transaminase levels; R00.2 Palpitations; Z20.822 Contact with and (suspected) exposure to COVID-19
CPT/HCPCS: 36415; 71046; 80053; 83735; 85025; 87637; 93005; 99284; A9270

== ENCOUNTER 2025-06-02 14:57 | Outpatient (CLI) | payer OTHER, SELFPAY ==
--- NOTE | ~2025-06-02 | MR_ITS ---
EXAMINATION: MR lumbar spine wo con DATE: 06/02/2025 15:30 INDICATION: Lumbar pain TECHNIQUE: Magnetic resonance imaging (MRI) of the lumbar spine was performed without intravenous contrast. Sequences included sagittal T2-weighted FSE, sagittal T2-weighted FS FSE, sagittal T1-weighted FSE, and axial T2-weighted FSE. COMPARISON: None FINDINGS: 3 mm retrolisthesis L4 on L5 Vertebral body heights are normal. Prominent marrow edema/edema-like signal change at the right anteroinferior aspect of the L4 vertebral body at the margins of but appears be a small likely acute Schmorl's node. Moderate disc height loss with fibrofatty degenerative endplate changes at L5-S1. Marrow signal is otherwise normal. There is additional disc desiccation and mild disc height loss at L2-L3, L3-L4 and L4-L5. The conus medullaris terminates at L1. There is normal signal in the caudal spinal cord. 5.2 cm T2 hyperintense right renal cyst. Paravertebral soft tissues are otherwise unremarkable. The following disc levels are specifically discussed: T12-L1: The disc does not extend beyond the endplate margin. There is mild bilateral facet joint osteoarthritis. There is no neural foraminal stenosis. There is no central canal stenosis. L1-L2: The disc does not extend beyond the endplate margin. There is mild bilateral facet joint osteoarthritis. There is no neural foraminal stenosis. There is no central canal stenosis. L2-L3: Disc is mildly bulging with superimposed annular fissure with small central disc protrusion. There is mild bilateral facet joint osteoarthritis. There is mild bilateral neural foraminal stenosis. There is mild central canal stenosis. L3-L4: Disc is mildly bulging. There is mild bilateral facet joint osteoarthritis. There is mild to moderate bilateral neural foraminal stenosis. There is minimal central canal stenosis. L4-L5: Disc is bulging. There is mild bilateral facet joint osteoarthritis. There is moderate bilateral neural foraminal stenosis. There is mild central canal stenosis. L5-S1: Disc is bulging with annular fissure. There is mild bilateral facet joint osteoarthritis. There is moderate bilateral neural foraminal stenosis. There is mild central canal stenosis. IMPRESSION: 1. Mild to moderate lower lumbar predominant spondylosis. 2. Small likely acute Schmorl's node along the inferior endplate of L4 with prominent surrounding marrow edema. Reviewed, dictated and finalized at location A. IMPRESSION: 1. Mild to moderate lower lumbar predominant spondylosis. 2. Small likely acute Schmorl's node along the inferior endplate of L4 with pro minent surrounding marrow edema.
== END 2025-06-02 14:58 | disposition home or self-care (01) ==
DX: M47.816 Spondylosis without myelopathy or radiculopathy, lumbar region (principal); Z01.89 Encounter for other specified special examinations; M51.46 Schmorl's nodes, lumbar region; R60.9 Edema, unspecified
CPT/HCPCS: 72148